=== PATIENT | female | born 1960 | race Two or more races ===

== ENCOUNTER → 2025-01-26 | Outpatient (CLI) | payer OTHER, SELFPAY ==
[2025-01-26 11:36] LABS: Basophils % (Auto) 1 % (0-2.5); Eosinophils # (Auto) 0.2 Thou/mm3 (0.0-0.5); Eosinophils % (Auto) 4 % (0-10); Hematocrit 39.3 % (36.0-46.0); Hemoglobin 13.4 g/dL (12.0-16.0); Immature Granulocytes % (Auto) 1 % (0-0); Immature Granulocytes Auto 0.02 Thou/mm3 (0.00-0.00); Lymphocytes # (Auto) 1.2 Thou/mm3 (1.0-4.8); Lymphocytes % (Auto) 30 % (10-50); Mean Corpuscular HGB Conc 34.1 g/dl (31.0-37.0); Mean Corpuscular Hemoglobin 29.2 pg (25.0-35.0); Mean Corpuscular Volume 86 fL (80-100); Monocytes # (Auto) 0.3 Thou/mm3 (0.0-0.8); Monocytes % (Auto) 8 % (0-12); Neutrophils # (Auto) 2.3 Thou/mm3 (1.8-7.7); Neutrophils % (Auto) 57 % (37-80); Nucleated Red Blood Cell % 0 /100 WBC (0); Platelet Count 233 Thou/mm3 (140-440); RDW Standard Deviation 41.6 fL (36.4-46.3); Red Blood Count 4.59 Miln/mm3 (4.00-5.20)
[2025-01-26 11:54] LABS: Glucose Estimated Average 111 mg/dL (80-131); Hemoglobin A1C 5.5 % Hgb (4.8-6.0)
[2025-01-26 12:03] LABS: Sed Rate (ESR) 44 mm/hr (0-30)
[2025-01-26 12:08] LABS: Alanine Aminotransferase 32 U/L (10-49); Albumin, Serum 4.4 gm/dL (3.4-4.8); Albumin/Globulin Ratio 1.8 (1.2-2.2); Alkaline Phosphatase 78 U/L (46-116); Anion Gap 14 (7-16); Aspartate Amino Transferase 30 U/L (0-34); BUN/Creatinine Ratio 20 Ratio (12-20); Bilirubin,Total 0.5 mg/dL (0.3-1.2); Blood Urea Nitrogen 14 mg/dL (9-23); Calcium 9.2 mg/dL (8.3-10.6); Calcium (Corrected) 9.2 mg/dL (8.5-10.1); Carbon Dioxide 23.1 mMol/L (20.0-31.0); Chloride 108 mMol/L (98-107); Creatinine (Component) 0.7 mg/dL (0.6-1.3); Globulin 2.4 gm/dL (2.3-3.5); Glucose 102 mg/dL (74-106); Osmolality,Calculated 289 (275-295); Potassium 4.4 mMol/L (3.4-5.1); Sodium 145 mMol/L (136-145); Total Protein 6.8 gm/dL (5.7-8.2); eGFR > 60 See Note
== END | disposition home or self-care (01) ==
PROVIDERS: PCP Family Medicine; Referring Provider Family Medicine; Visit Provider Family Medicine
DX: E11.65 Type 2 diabetes mellitus with hyperglycemia (principal)
CPT/HCPCS: 36415; 80053; 83036; 85025; 85652

== ENCOUNTER 2025-04-20 09:53 | Outpatient (RCR) | payer OTHER, SELFPAY ==
--- NOTE | 2025-04-20 10:09 | PT.OIERPT ---
PT OP Initial Eval Patient Information Outpatient Physical Therapy Treatment Date: 04/20/25 Visit Reasons: LEFT KNEE PRIMARY OSTEOARTHRITIS Medical Diagnosis: L knee OA Treatment Dx #1: L knee pain Start of Care: 04/20/25 Date of Onset: 6 months ago Smoking Status Smoking Status: Never smoker Initial Assessment Subjective: Pt is 64 yr old kazakh speaking female who c/o L knee pain x6 months. She can ambulate without pain meds for about 30 mins but it hurts. This limits shopping and HH chore tolerance. PMH: allergies Imaging: with provider Pt goal: to be able to walk further with less pain Objective: L knee AROM: ? Flexion: 120 deg ? Extension: full ? Varus/valgus: positive gapping into both ~5mm ? SLR: 55 deg with slight extensor lag ? Strength: L quads 4-/5 limited by lateral joint line pain, hamstrings 4-/5 ? Dion's: mild pain Assessment: Pt presentation consistent with Xray results that reveal mild to moderate OA of L knee. Pt may benefit from skilled therapy to meet goals and has fair rehab potential. Short Term and [employer] Goals 1. Independent with HEP ? 2. Improved knee flexion ROM to 115 deg ? 3. Improved quad and hamstring strength to 4+/5 ? 4. Improved ambulatory tolerance to community distances with symmetrical ? gait pattern. Treatment Plan Certification Dates: 04/20/25 to 07/20/25 Procedure Charges OP PT Eval Mod Complex 30 minutes: Yes
== END 2025-04-24 23:59 | disposition home or self-care (01) ==
LOC: CPTX 09:53
PROVIDERS: PCP Orthopaedic Surgery; Referring Provider Orthopaedic Surgery; Visit Provider Orthopaedic Surgery
DX: M25.562 Pain in left knee (principal)
CPT/HCPCS: 97162

== ENCOUNTER 2025-05-18 09:30 | Outpatient (RCR) | payer OTHER, SELFPAY ==
--- NOTE | 2025-04-27 10:48 | PT.ODAYNRPT ---
PT Outpatient Daily Note OP Daily Note Outpatient Physical Therapy Treatment Date: 04/27/25 Visit Reasons: LEFT KNEE ARTHRITIS Subjective: Pt reports L knee pain is mild today. Objective: Please see flow sheet for ther ex list. Assessment: Interventions completed with minimal pain. Plan: Assess response to treatment. Length of Time (minutes) of Treatment: 30 Minutes Procedure Charges Therapeutic Exercise 30 minutes: Yes
--- NOTE | 2025-05-04 09:58 | PT.ODAYNRPT ---
PT Outpatient Daily Note OP Daily Note Outpatient Physical Therapy Treatment Date: 05/04/25 Visit Reasons: LEFT KNEE ARTHRITIS Subjective: Pt reports L knee is doing better, no c/o pain. Objective: Please see flow sheet for ther ex list. Assessment: Pt demonstrates good knee mechanics with squat exercises today. Plan: Continue with POC. Length of Time (minutes) of Treatment: 30 Minutes Procedure Charges Therapeutic Exercise 30 minutes: Yes
--- NOTE | 2025-05-11 10:23 | PT.ODAYNRPT ---
PT Outpatient Daily Note OP Daily Note Outpatient Physical Therapy Treatment Date: 05/11/25 Visit Reasons: LEFT KNEE ARTHRITIS Subjective: Pt c/o of minimal Lt knee pain Objective: See F/S for therex performed Assessment: Progressed to alternating fwd lunges; required minimal vc's to improve knee mechanics. No increase in pain to Lt knee w/ therex. Ice pack applied post session Plan: Continue with POC Length of Time (minutes) of Treatment: 30 Minutes Procedure Charges Therapeutic Exercise 30 minutes: Yes
--- NOTE | 2025-05-18 10:06 | PT.ODAYNRPT ---
PT Outpatient Daily Note OP Daily Note Outpatient Physical Therapy Treatment Date: 05/18/25 Visit Reasons: LEFT KNEE ARTHRITIS Subjective: Pt reports she is doing well with no pain. Objective: See F/S for therex performed Assessment: Progressed to SB wall mini squats; required min vc's to push hips back and avoid knees over toes, pt complied. No pain to report post therex. Plan: Continue with POC Length of Time (minutes) of Treatment: 30 Minutes Procedure Charges Therapeutic Exercise 30 minutes: Yes
== END 2025-05-24 23:59 | disposition home or self-care (01) ==
LOC: CPTX 09:30
PROVIDERS: PCP Orthopaedic Surgery; Referring Provider Orthopaedic Surgery; Visit Provider Orthopaedic Surgery
DX: M25.562 Pain in left knee (principal)
CPT/HCPCS: 97110

== ENCOUNTER 2025-06-15 09:30 | Outpatient (RCR) | payer OTHER, SELFPAY ==
--- NOTE | 2025-05-25 10:40 | PT.ODAYNRPT ---
PT Outpatient Daily Note OP Daily Note Outpatient Physical Therapy Treatment Date: 05/25/25 Visit Reasons: Left knee arthritis Subjective: Pt reports she is doing well with no pain to report to Lt knee Objective: See F/S for therex perfomred Assessment: Improvement with squat mechanics and depth, performs best with SB against the wall to cue form. Plan: Continue with POC Length of Time (minutes) of Treatment: 30 Minutes Procedure Charges Therapeutic Exercise 30 minutes: Yes
--- NOTE | 2025-06-01 10:48 | PT.ODAYNRPT ---
PT Outpatient Daily Note OP Daily Note Outpatient Physical Therapy Treatment Date: 06/01/25 Visit Reasons: Left knee arthritis Subjective: Pt reports progress with L knee. Objective: Please see flow sheet for ther ex list. Assessment: Added LAQ and HS curl with light thera band resistance, cues to avoid hip flexion during standing HS curl exercise. Plan: Continue with poC. Length of Time (minutes) of Treatment: 30 Minutes Procedure Charges Therapeutic Exercise 30 minutes: Yes
--- NOTE | 2025-06-08 11:05 | PT.ODAYNRPT ---
PT Outpatient Daily Note OP Daily Note Outpatient Physical Therapy Treatment Date: 06/08/25 Visit Reasons: Left knee arthritis Subjective: Pt reports L knee is doing better, has one more PT visit left. Objective: Please see flow sheet for ther ex list. Assessment: Pt presents in clinic with decrease pain allowing for intervention progression. Plan: Assess for note. Length of Time (minutes) of Treatment: 30 Minutes Procedure Charges Therapeutic Exercise 30 minutes: Yes
--- NOTE | 2025-06-15 12:57 | PT.ODS1RPT ---
PT OP Progress/Discharge Note Date of Service: 06/15/25 Progress Note/DC Note Progress Note/Discharge Note: DC Note Patient Information Visit Reasons: Left knee arthritis Service Continue Service or Discharge: Discharge Discharge Date: 06/15/25 Status Subjective: Pt reports the L knee is not hurting as much anymore and she can ambulate required distances. Objective: L knee AROM: Flexion: 120 deg Extension: full Strength: L quads: 4+/5 L HS: 4+/5 Assessment: Pt has attended the eval and 04/01 Rx sessions with good progress to meet therapy goals. Pt can ambulate community distances with symmetrical pattern and is independent with HEP and has improved quad and HS strength to 4+/5 to meet those goals. Rx followed by updated HEP printout. Plan: D/C with HEP Procedure Charges Therapeutic Exercise 30 minutes: Yes
== END 2025-06-24 23:59 | disposition home or self-care (01) ==
LOC: CPTX 09:30
PROVIDERS: PCP Orthopaedic Surgery; Referring Provider Orthopaedic Surgery; Visit Provider Orthopaedic Surgery
DX: M25.562 Pain in left knee (principal)
CPT/HCPCS: 97110